=== PATIENT | male | born 1995 | race Caucasian/White ===

== ENCOUNTER 2017-10-07 19:45 | Emergency (ER) | payer SELFPAY ==
[~2017-10-07] VITALS: Ht 175.3 cm; Wt 72.6 kg
[2017-10-07 19:52] VITALS: Ht 175.3 cm; Wt 72.6 kg
[2017-10-07 21:28] VITALS: BP 132/84
== END 2017-10-07 21:28 | disposition home or self-care (01) ==
LOC: ED 19:45
DX: S42.032A Displaced fracture of lateral end of left clavicle, initial encounter for closed fracture (principal); V18.4XXA Pedal cycle driver injured in noncollision transport accident in traffic accident, initial encounter; Y93.89 Activity, other specified; Y92.89 Other specified places as the place of occurrence of the external cause; Y99.8 Other external cause status
CPT/HCPCS: J1885